=== PATIENT | male | born 2000 | race Caucasian/White ===

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

== ENCOUNTER → 2022-12-06 10:06 | Outpatient (CLI) | payer OTHER, SELFPAY ==
--- NOTE | ~2022-12-06 | US_ITS ---
US scrotum doppler INDICATION: Bilateral palpable left testicular abnormalities TECHNIQUE: Testicular sonogram utilizing grayscale and color Doppler FINDINGS: The testes are normal in size and appearance. No focal lesions are seen. The right testes measures 4 x 2.5 x 2.9 cm centimeters, and the left testis measures 3.8 x 2.3 x 2.4 cm cm. There is n ormal vascular flow to both testes. There are bilateral epididymal cysts, largest on the left measuring 2 cm. This corresponds to the are a palpable abnormality on the left. There is a right varicocele corresponding to the area of palpable abnormality in the right testicular location. No evidence for hydrocele. IMPRESSION: 1. Right varicocele. 2: Bilateral epididymal cysts, largest on the left measuring 2 cm. Reviewed, dictated and finalized at location B.
== END ==
PROVIDERS: PCP Physician Assistant Medical; Visit Provider Physician Assistant Medical
DX: I86.1 Scrotal varices (principal); N50.3 Cyst of epididymis
CPT/HCPCS: 76870; 93976